=== PATIENT | female | born 1985 ===

== ENCOUNTER 2024-03-11 06:01 | Day surgery (SDC) | payer OTHER ==
[2024-03-05 12:12] VITALS: BP 124/85
[~2024-03-11] VITALS: Ht 162.6 cm; Wt 77.1 kg
[2024-03-11] MEDS ORDERED: BUPIVACAINE HCL 30 ML VIAL IJ ONE (11:00)
[2024-03-11] MEDS ORDERED: HEMOSTATIC MATRIX 1 KIT KIT TOP ONE (11:00)
[2024-03-11] MEDS ORDERED: LIDOCAINE HCL 1%/EPINEPHRINE 20ML VIAL IJ ONE (11:00)
[2024-03-11] MEDS ORDERED: POVIDONE-IODINE 118 ML BOTT TOP ONE (11:00)
[2024-03-11] MEDS ORDERED: DIBUCAINE 30 GM TUBE RECTAL ONE (11:00)
[2024-03-11] MEDS ORDERED: CEFTRIAXONE SODIUM 2,000 MG VIAL IV ONE (11:00)
[2024-03-11] MEDS ORDERED: METRONIDAZOLE/SODIUM CHLORIDE 500 MG/100 ML PIGGYBACK IV ONE (11:00)
[2024-03-11] MEDS ORDERED: TRIAMCINOLONE ACETONIDE 40 MG/ML VIAL IJ ONE (11:15)
== END 2024-03-11 17:30 | disposition home or self-care (01) ==
LOC: CIR.AMB 06:01
PROVIDERS: ATTEND Colon & Rectal Surgery
DX: D12.8 Benign neoplasm of rectum (principal); K62.3 Rectal prolapse; D64.9 Anemia, unspecified